=== PATIENT | female | born 1995 | race American Indian/Alaskan Native ===

== ENCOUNTER 2016-08-21 21:04 | Inpatient (IN) | payer MEDICAID ==
[2016-07-14 00:09] VITALS: BMI 24.0
[2016-08-21] MEDS ORDERED: Penicillin G 5 Million Unit Vial IVPB ONE ×2 (21:18→21:36)
--- NOTE | 2016-08-21 21:18 | OBADHP ---
Datetime: 08/21/2016 21:13 Admit Comment, IP Provider: at 39+weeks came with ctxs stated at 7 pm, q 1-4 min, 10/27,, no vb, lof,+fm. obhx 1 x 2-week loss pmh herpes med pnv,vacylovir all nkda psh den soch den ve 80/-2 a/p at 39+weeks in labor admit to l npo/ivf labs cont amna and efm pain shemar gbs prophylaxsis anticipate Pelvic Type - PN: Adequate Extremities - PN: Normal Abdomen - PN: Normal Back - PN: Normal Breast - PN: Normal Lungs - PN: Normal Heart - PN: Normal Thyroid - PN: Normal Neurologic - PN: Normal HEENT - PN: Normal General - PN: Normal FHR - Baseline A Provider: 130 Contraction Comments Provider: q1-3 Comments, ACOG Physical Exam: gravid,non tender no herpes outbreak no lession ve 80/-2 IP Hx Assessment: The History has been Reviewed and is Current Vital Signs Provider: Reviewed; Within Normal Limits IP Chief Complaint: Uterine contractions NICHD Variability Prov Fetus A: Moderate 6-25bpm NICHD Accel Fetus A IP Provider: 15X15 FHR Category Provider Fetus A: Category I Dilatation, Provider: 2 Effacement, Provider: 80 Station, Provider: -2 Genitourinary Exam: Normal DTRs - PN: Normal EGA AdmitDate IP: 39.4 IP Adm Impression: Term, intrauterine ; Active labor; Intact Membranes IP Admit Plan: Admit to unit; Initiate labor protocol Datetime: 07/14/2016 00:12 Gestation - Est Wks by US: 34 weeks NICHD Decel Fetus A IP Provider: None
[2016-08-21] MEDS ORDERED: Nalbuphine 20 mg/ml Inj (1 ml) IVP PRN ×2 (21:22→21:30)
[2016-08-21 21:37] LABS: BASO % 0.1 % (0.0-2.0); EOS % 0.1 % (0.0-4.0); HEMATOCRIT 30.4 % (34.0-47.0); LYMPH # 1.5 K/uL (1.0-4.3); LYMPH % 15.6 % (20.0-40.0); MEAN CELL VOLUME 75.8 fL (81.0-99.0); MEAN CORPUSCULAR HEMOGLOBIN 23.6 pg (27.0-31.0); MEAN CORPUSCULAR HGB CONC 31.1 g/dL (33.0-37.0); MEAN PLATELET VOLUME 8.9 fL (7.2-11.7); MONO # 0.7 K/uL (0.0-0.8); MONO % 7.2 % (0.0-10.0); RED CELL DISTRIBUTION WIDTH 15.4 % (11.5-14.5); WHITE BLOOD COUNT 9.6 K/uL (4.8-10.8)
[2016-08-21] MEDS: Lactated Ringer's 1,000 ML IV SCH ×2 (21:40→23:58)
[2016-08-21 21:42] LABS: RBC URINE 8 /hpf (0-3); URINE BACTERIA FEW (<OCC); URINE BILIRUBIN NEGATIVE (NEGATIVE); URINE BLOOD 1+ (NEGATIVE); URINE COLOR Straw (YELLOW); URINE GLUCOSE (UA) NORMAL (Normal); URINE KETONE 1+ mg/dL (NEGATIVE); URINE LEUKOCYTE ESTERASE 3+ Leu/uL (Negative); URINE PROTEIN NEGATIVE (NEGATIVE); URINE UROBILINOGEN NORMAL mg/dL (0.2-1.0); WBC URINE 15 /hpf (0-5)
[2016-08-21 21:44] LABS: CHLORIDE 103 mmol/L (98-107)
[2016-08-21 21:45] LABS: POTASSIUM 3.8 mmol/L (3.6-5.2); SODIUM 135 mmol/L (132-148)
[2016-08-21 21:48] LABS: ALKALINE PHOSPHATASE 175 U/L (38-126); ALT/SGPT 24 U/L (9-52); AST/SGOT 27 U/L (14-36); BILIRUBIN,TOTAL 0.7 mg/dL (0.2-1.3); BLOOD UREA NITROGEN 6 mg/dL (7-17); CARBON DIOXIDE 20 mmol/L (22-30); GFR AFRICAN-AMERICAN > 60; GLUCOSE,RANDOM 70 mg/dL (65-105); TOTAL PROTEIN 7.7 g/dL (6.3-8.3)
[2016-08-21 21:49] LABS: CALCIUM 8.6 mg/dl (8.6-10.4)
[2016-08-21] MEDS ORDERED: Bupivacaine HCl 0.25% PF (10 ml) Inj ONE (23:33)
[2016-08-22] MEDS: Penicillin G Potassium 2.5 MU in Dextrose 5% In Water 50 ML IV SCH ×3 (01:19→09:21)
[2016-08-22] MEDS ORDERED: Oxytocin 30 UNIT 30 UNITS/500 ML BAG IV ONE (03:36)
[2016-08-22] MEDS ORDERED: Oxytocin 30 UNIT 30 UNITS/500 ML BAG IV PRN (03:37)
[2016-08-22] MEDS ORDERED: Bupivacaine 0.125%/FentaNYL 200 ML EPI ONE (07:51)
--- NOTE | 2016-08-22 08:11 | OBPN ---
Datetime: 08/22/2016 08:08 IP Progress Impression: Normal progression of labor IP Procedures: Sterile Vag Exam FHR - Baseline A Provider: 130 IP Progress Note Comment: pt was examined at bed side ve 8/100/0 cont pitocin anticipate Vital Signs Provider: Reviewed; Within Normal Limits NICHD Accel Fetus A IP Provider: 15X15 FHR Category Provider Fetus A: Category I NICHD Variability Prov Fetus A: Moderate 6-25bpm Dilatation, Provider: 8 Effacement, Provider: 100 Station, Provider: 0 Datetime: 08/21/2016 21:13 Contraction Comments Provider: q1-3 Datetime: 07/14/2016 00:12 Gestation - Est Wks by US: 34 weeks NICHD Decel Fetus A IP Provider: None
[2016-08-22] MEDS ORDERED: Oxycodone/Acetaminophen 5/325 mg Tab PO PRN (10:14)
[2016-08-22] MEDS ORDERED: Benzocaine/Menthol 20%-0.5% Topical Spray (60 ml) TOP PRN (10:14)
[2016-08-22] MEDS ORDERED: Oxytocin 30 UNIT 30 UNITS/500 ML BAG IV SCH (10:15)
--- NOTE | 2016-08-22 10:16 | OBDS ---
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 right arm deliverd and than baby came with out difficulty. peads called. 9/9. no com_placente spontaneously no com LABOR SUMMARY EDC: 08/24/2016 00:00 No. Babies in Womb: 1 Attempted: No Labor Anesthesia: Epidural LABOR INFORMATION Reason for Induction: Not Applicable Onset of Labor: 08/21/2016 19:00 Cervical Ripening Agents: Other Other Ripening Agents: na Oxytocin: Augmentation Group B Beta Strep: Positive Steroids Given: None Reason Steroids Not Administered: Not Applicable MEMBRANES Membranes Rupture Method: Spontaneous Rupture of Membranes: 08/22/2016 08:10 Amniotic Fluid Color: Bloody Amniotic Fluid Amount: Scant Amniotic Fluid Odor: Normal VAGINAL DELIVERY Episiotomy: None Laceration Extension: First Degree Laceration Type: Perineal Laceration Repair Note: repaired with 2 vircry BABY A INFORMATION Born in Route : No : N/A Forceps: N/A Vacuum Extraction: N/A Shoulder Dystocia : No PRESENTATION/POSITION BABY A Presentation: Cephalic Cephalic Presentation: Vertex Vertex Position: Left Occipital Anterior Breech Presentation: N/A INFANT INFORMATION BABY A Gestational Age at Delivery: 39.5 Gestational Status: Term IDENTIFICATION/MEDS BABY A ID Band Number: [id number] Sensor Number: [id number] WEIGHT/LENGTH BABY A Infant Birthweight (gms): 3470 Weight (lb): 7 Infant Weight (oz): 10 Length Inches: 19.75 Infant Length cms: 50.2 CORD INFORMATION BABY A Nuchal Cord : N/A
[2016-08-23 06:35] LABS: HEMATOCRIT 26.5 % (34.0-47.0); MEAN CELL VOLUME 75.8 fL (81.0-99.0); MEAN CORPUSCULAR HEMOGLOBIN 23.8 pg (27.0-31.0); MEAN CORPUSCULAR HGB CONC 31.4 g/dL (33.0-37.0); MEAN PLATELET VOLUME 9.3 fL (7.2-11.7); RED CELL DISTRIBUTION WIDTH 15.4 % (11.5-14.5); WHITE BLOOD COUNT 12.9 K/uL (4.8-10.8)
--- NOTE | 2016-08-23 07:30 | OBPPN ---
Datetime: 08/23/2016 07:28 PP Pain Prov: Within normal limits PP Nausea Prov: Denies PP Flatus Prov: Yes PP BM Prov: No PP Heart Prov: Normal PP Lungs Prov: Normal PP Abdomen/Uterus Prov: Normal PP Lochia Prov: Normal PP CVA Tenderness Prov: Normal PP Extremities Prov: Normal PP C/S Incision Prov: Not Applicable PP Progress Prov: Not Applicable PP Impression Prov: Normal progression PP Plan Prov: Continue present management PP Progress Note Prov: S-patient denies any compalints.reports that pain is well controlled.denies n ausea, vomiting, headache, chest pain shortness of breath, numbness or tingling in hands and feet O-VSS Afebrile Fundus firm and below umbilcius Extremitie sno calf tenderness A/P Patient s/p vaginal delivery PPD 1 doing well.Anemia noted on labs -start iron once daily -continue routine post op care -anticipate discharge tomorrow Vital Signs Provider PP: Reviewed; Within Normal Limits
[2016-08-24 08:09] VITALS: BP 124/79; PULSE 74; RESP 18; TEMP 97.9; O2SAT 99
--- NOTE | 2016-08-24 08:13 | OBPPN ---
Datetime: 08/24/2016 08:10 PP Pain Prov: Within normal limits PP Nausea Prov: Denies PP Flatus Prov: Yes PP Abdomen/Uterus Prov: Normal PP Lochia Prov: Normal PP Extremities Prov: Normal PP Comments Phys Exam Prov: fudus below umblicus ext no edema,no calf ten PP Impression Prov: Normal progression PP Plan Prov: Discharge PP Progress Note Prov: pt was seen at bedc side, pain under control,no n/v, tolerating deit,voiding, min lochia, flartus+ ppd#2 s/p dc home no sex motrin prn f/u in 6weeks Vital Signs Provider PP: Reviewed; Within Normal Limits
--- NOTE | 2016-08-24 08:14 | OBDCSUM ---
Datetime: 08/24/2016 08:12 Discharged to, Provider: Home Follow up at, Provider: 6wee Disch Instr Activity: Normal activity Disch Instr Diet: Regular Discharge Diagnosis, Provider: Term Delivered Follow up in weeks, Provider: clinic Disch Activity Restrictions: No exercising; No lifting; Minimize walking; Minimize stair-climbing; N o sexual activity; Nothing in vagina - [place], tampons, douche Discharge Comment, Provider: no sex motrin prn f/u in 6wee Discharge Diagnosis Prov Other: s/p
== END 2016-08-24 14:30 | disposition home or self-care (01) | DRG 372 ==
LOC: C.EROB 21:04 → C.4D 21:17 → C.4M 08-22 12:21
PROVIDERS: ADMIT Obstetrics & Gynecology; ATTEND Obstetrics & Gynecology
PROC: 10E0XZZ Delivery of Products of Conception, External Approach (ICD-10-PCS; principal; 2016-08-22)
PROC: 0HQ9XZZ Repair Perineum Skin, External Approach (ICD-10-PCS; 2016-08-22)
DX: O99.824 Streptococcus B carrier state complicating childbirth (principal); O98.52 Other viral diseases complicating childbirth; B00.9 Herpesviral infection, unspecified; O99.02 Anemia complicating childbirth; D64.9 Anemia, unspecified; O70.0 First degree perineal laceration during delivery; Z37.0 Single live birth; Z3A.39 39 weeks gestation of pregnancy